=== PATIENT | female | born 1955 | race Caucasian/White ===

== ENCOUNTER → 2016-12-05 | Outpatient (CLI) | payer OTHER ==
[~2016-12-05] MED LIST: AMIT50TA3 PO; AMT25 PO; ASPCH81 PO; ASPI81TA28 PO; ATOR10TA82 PO; AZITTAB PO; BNC5 PO; CLR/5 PO; CLR10 PO; EMPA1TAB PO; GLC/500 PO; INSU1INJ15; LVMI SQ; METF1000 PO; METO25TA3 PO; ROSU5TAB PO
== END | disposition home or self-care (01) ==
LOC: C.RDSM 12:15
PROVIDERS: ATTEND Physical Medicine & Rehabilitation Sports Medicine
DX: M25.562 Pain in left knee (principal)

== ENCOUNTER 2016-12-23 18:29 | Emergency (ER) | payer OTHER ==
[~2016-12-23] VITALS: Ht 154.9 cm; Wt 69.4 kg
[~2016-12-23 18:29] MED LIST changes: -AMIT50TA3 PO; -ASPI81TA28 PO; -ATOR10TA82 PO; -AZITTAB PO; -CLR10 PO; -EMPA1TAB PO; -GLC/500 PO; -LVMI SQ
[2016-12-23 18:31] VITALS: BP 162/81; PULSE 88; TEMP 37.1; O2SAT 95; Ht 154.9 cm; Wt 69.4 kg
[2016-12-23] MEDS ORDERED: AZITTAB PO (18:47)
--- NOTE | 2016-12-23 18:49 | EMERGENCY ROOM VISIT NOTE ---
ED Visit Note First contact with patient: 18:35 CHIEF COMPLAINT: Right Earache HISTORY OF PRESENT ILLNESS: This 61-year-old female presents to the emergency department and states they have had an earache 1 day. The patient reports 2 day history of chest congestion, coughing up clear phlegm. She states she thought she was getting a sinus infection due to the drainage, however she has not experienced any sinus congestion. The patient states today, she began experiencing right ear pain and pressure. The patient has not had a sore throat or recent URI. There is no hoarseness. They rate the pain as sharp and 10/10. The pain is in the right ear. They have had Tylenol for the pain with only minimal relief. REVIEW OF SYSTEMS: A 6 system review of systems was completed with positives and pertinent negatives listed in the HPI. ALLERGIES: Codeine, penicillin, NSAIDs MEDICATIONS: Levemir, metformin, amitriptyline, metoprolol, Cozaar, aspirin, Lipitor PMH: Diabetes, fibromyalgia, hypertension, hyperlipidemia, heart disease. SH: Patient is a current smoker, and smokes approximately one pack per day. Patient denies alcohol or drug use. She lives locally with her family PHYSICAL EXAM: Vital Signs: Reviewed Nurse's notes, temperature 37.1C orally. GENERAL: 61-year-old female, in no acute distress, well-developed, well- nourished. SKIN: Normal. HEART: Regular rate and rhythm without murmurs gallops or rubs. LUNGS: Clear to auscultation and breath sounds equal, no wheezes, rales, or rhonchi. MOUTH: The pharynx is not inflamed and the tonsils are not enlarged. The airway is patent. EARS: The right tympanic membrane is erythematous, inflamed and bulging. The right external auditory canal is clear with no tragus tenderness. The left tympanic membrane is pearly cervantes without erythema or effusion. The left external auditory canal is clear. LYMPH: There is no lymphadenopathy. ED COURSE: I examined the patient. Discussion with patient regarding proper treatment of otitis media. Pt. became upset at discharge because her pharmacy is currently closed, so reque The patient was discharged home in stable condition. DIAGNOSIS: Acute otitis media of the right ear DIFFERENTIAL DIAGNOSIS: Acute otitis externa, cranial nerve palsy, acute sinusitis, acute bronchitis, pneumonia, and others. DISCHARGE INSTRUCTIONS & TREATMENT: Z-pack as directed, however you received your first dose this evening. Take 1 tablet daily starting tomorrow for 5 days. You may take Tylenol 500-1000mg 3-4 times per day as needed for pain. No swimming until resolved. Follow up with family doctor if not improving in 7 days. Problem List Medical Problems: (1) Bilateral carpal tunnel syndrome Status: Resolved (2) DM (diabetes mellitus) Status: Chronic (3) Heart disease Status: Chronic (4) HTN (hypertension) Status: Chronic (5) PNA (pneumonia) Status: Resolved (6) Trigger thumb of both thumbs Status: Resolved Surgical Problems: (1) Stented coronary artery Status: Resolved Current/Historical Medications Scheduled Amitriptyline Hcl (Elavil *), 50 MG PO HS PRN Aspirin (Aspirin Tab-Chewable *), 81 MG PO DAILY Azithromycin (Zithromax Z-Vijay), 0 PO UD Desloratadine (Clarinex), 5 MG PO DAILY Insulin Detemir (Levemir), 44 BID Metformin Hcl (Glucophage), 1,000 MG PO BID Metoprolol Succ (Toprol Xl) (Toprol-Xl), 25 MG PO BID Olmesartan Medoxomil (Benicar), 5 MG PO QPM Rosuvastatin Calcium (Crestor), 5 MG PO Q2D Allergies Coded Allergies: NSAIDs (Verified Allergy, Intermediate, ., 02/22/16) PERIPHERAL EDEMA OF LEGS Rofecoxib (Verified Allergy, Intermediate, ., 02/22/16) PERIPHERAL EDEMA OF LEGS Codeine (Unverified Allergy, Unknown, COLD SWEAT,ANXIETY, 02/22/16) Penicillins (Unverified Allergy, Unknown, UNKNOWN, 02/22/16) Vital Signs Date Time Temp Pulse Resp B/P (MAP) Pulse Ox O2 Delivery O2 Flow Rate FiO2 12/23/16 18:31 37.1 88 20 162/81 95 Room Air Departure Information Impression Primary Impression: Otitis media of right ear Dispostion Home / Self-Care Condition GOOD Prescriptions Azithromycin (ZITHROMAX Z-VIJAY) 250 Mg Tab 0 PO UD, #1 PKT 2 TABS DAY 1, THEN 1 TAB DAILY FOR 4 DAYS Prov: Tram Leigh PA-C 12/23/16 Referrals Maya Choudhury D.O. (PCP) Patient Instructions ED Otitis Media Acute Adult, [facility] Additional Instructions You have been treated in the Emergency Department for an Inner Ear Infection ( Otitis Media). You were prescribed Zithromax to be taken 2 pills on day 1 (which you received in the ED), one pill on days 2 through 5. This is an antibiotic. All antibiotics have the potential to cause diarrhea. Stop this medication and contact a medical provider if you were to develop any significant adverse side effects including: wheezing, shortness of breath, passing out, vomiting, or a diffuse rash. Always take antibiotics as directed and COMPLETE the ENTIRE course regardless of the improvement of your symptoms. For pain and fever control, you can use the following [id number] medicines (if >12 yo): - Regular strength (325mg/tab) Tylenol (acetaminophen) 2 tabs every 4-6 hours as needed. Do not exceed 12 tablets in a 24 hour period. Avoid taking more than 4 grams (4000 mg) of Tylenol per day. This includes any other sources of acetaminophen you may take on a regular basis. You should follow-up with your Primary Care Provider from today's Emergency Department visit. Return to the emergency department if you develop the following symptoms despite treatment course outlined above: headache, fever, intractable pain, increased redness, swelling, or purulent discharge. Problem Qualifiers Primary Impression: Otitis media of right ear Otitis media type: serous Chronicity: acute Recurrence: not specified as recurrent Qualified Codes: H65.01 - Acute serous otitis media, right ear
[2016-12-23] MEDS ORDERED: AZITHROMYCIN 250 MG TAB PO STA (18:52)
[2016-12-23] MEDS ORDERED: CLR10 PO (19:07)
[2016-12-23] MEDS ORDERED: LVMI SQ (19:07)
[2016-12-23] MEDS ORDERED: GLC/500 PO (19:07)
[2016-12-23] MEDS ORDERED: EMPA1TAB PO (19:07)
[2016-12-23] MEDS ORDERED: ATOR10TA82 PO (19:07)
[2016-12-23] MEDS ORDERED: ASPI81TA28 PO (19:07)
[2016-12-23] MEDS ORDERED: AMIT50TA3 PO (19:07)
== END 2016-12-23 18:59 | disposition home or self-care (01) ==
LOC: C.EDB 18:30 → C.EDD 18:59
DX: H65.01 Acute serous otitis media, right ear (principal); E11.9 Type 2 diabetes mellitus without complications; I10 Essential (primary) hypertension; E78.5 Hyperlipidemia, unspecified; F17.200 Nicotine dependence, unspecified, uncomplicated; Z87.01 Personal history of pneumonia (recurrent); Z98.61 Coronary angioplasty status; Z79.4 Long term (current) use of insulin; Z79.82 Long term (current) use of aspirin; Z79.84 Long term (current) use of oral hypoglycemic drugs; Z79.899 Other long term (current) drug therapy

== ENCOUNTER → 2017-03-20 | Outpatient (CLI) | payer OTHER ==
[~2017-03-20] MED LIST changes: +AMIT50TA3 PO; -AMT25 PO; -ASPCH81 PO; +ASPI81TA28 PO; +ATOR10TA88 PO; -CLR/5 PO; +CLR10 PO; +EMPA1TAB PO; +GLC/500 PO; -INSU1INJ15; +LVMI SQ; -METF1000 PO; -ROSU5TAB PO
== END | disposition home or self-care (01) ==
LOC: C.PAPS 14:49
PROVIDERS: ATTEND Obstetrics & Gynecology
DX: Z12.4 Encounter for screening for malignant neoplasm of cervix (principal)

== ENCOUNTER → 2017-08-03 | Outpatient (CLI) | payer OTHER ==
[~2017-08-03] MED LIST changes: +ATOR10TA82 PO; -ATOR10TA88 PO
--- NOTE | 2017-08-03 08:33 | DIAGNOSTIC IMAGING REPORT ---
ABDOMINAL ULTRASOUND, RIGHT UPPER QUADRANT HISTORY: Acute right upper abdominal pain.. COMPARISON: Abdominal ultrasound 05/01/2012. FINDINGS: Pancreas: The pancreatic duct is at the upper limits of normal measuring 2.6 mm. The visualized pancreas demonstrates a normal echotexture. Liver: Unremarkable. Gallbladder: No gallbladder wall thickening. No gallstones. CBD: 5 mm. Right kidney: No hydronephrosis. IMPRESSION: No significant abnormality identified within the right upper quadrant. Electronically signed by: Donavan Diane M.D. 08/03/2017 8:32 AM Dictated Date/Time: 08/03/2017 8:31 AM
== END | disposition home or self-care (01) ==
LOC: C.ULTR 07:33
PROVIDERS: ATTEND Nurse Practitioner
DX: R10.11 Right upper quadrant pain (principal)

== ENCOUNTER → 2017-08-07 | Outpatient (CLI) | payer OTHER ==
[2017-08-07 13:25] LABS: BASO % 0.2 %; BASO ABS # 0.02 K/uL (0-0.2); EOS % 0.5 %; EOS ABS # 0.04 K/uL (0-0.5); HEMOGLOBIN 15.9 g/dL (12.0-16.0); IG# 0.01 K/uL (0.00-0.02); LYMPH % 38.6 %; LYMPH ABS # 3.36 K/uL (1.2-3.4); MEAN CELL VOLUME 84.5 fL (80-100); MEAN CORPUSCULAR HEMOGLOBIN 28.6 pg (25-34); MEAN CORPUSCULAR HGB CONC 33.8 g/dl (32-36); MEAN PLATELET VOLUME 10.2 fL (7.4-10.4); MONO % 7.6 %; MONO ABS # 0.66 K/uL (0.11-0.59); NEUT ABS # 4.62 K/uL (1.4-6.5); PLATELET COUNT 323 K/uL (130-400); RED CELL DISTRIBUTION WIDTH CV 15.6 % (11.5-14.5); RED CELL DISTRIBUTION WIDTH SD 47.9 fL (36.4-46.3); WHITE BLOOD COUNT 8.71 K/uL (4.8-10.8)
[2017-08-07 13:53] LABS: ALBUMIN 3.6 gm/dl (3.4-5.0); ALT/SGPT 18 U/L (12-78); BLOOD UREA NITROGEN 14 mg/dl (7-18); CALCIUM 9.5 mg/dl (8.5-10.1); CARBON DIOXIDE 26 mmol/L (21-32); CHOLESTEROL 148 mg/dl (0-200); CREATININE 0.72 mg/dl (0.60-1.20); GLUCOSE 135 mg/dl (70-99); POTASSIUM 3.8 mmol/L (3.5-5.1); SODIUM 134 mmol/L (136-145)
[2017-08-07 13:57] LABS: ALKALINE PHOSPHATASE 114 U/L (45-117); AST/SGOT 7 U/L (15-37); LDL CHOLESTEROL CALCULATED 74 mg/dl; TOTAL PROTEIN 7.3 gm/dl (6.4-8.2)
== END | disposition home or self-care (01) ==
LOC: C.LABBFT 07:33
PROVIDERS: ATTEND Nurse Practitioner
DX: R10.11 Right upper quadrant pain (principal)

== ENCOUNTER → 2017-08-14 | Outpatient (CLI) | payer OTHER ==
[~2017-08-14] MED LIST changes: +SINCALIDE INJ 1.4 MCG in SODIUM CHLORIDE 0.9% 100ML 100 ML IV ONE
--- NOTE | 2017-08-14 15:19 | DIAGNOSTIC IMAGING REPORT ---
HEPATOBILIARY EF IMAGING HISTORY: Pain. Nausea. R10.11 Acute abdominal pain in right upper quadrant COMPARISON: None. TECHNIQUE: Immediately following the intravenous administration of 5.64 mCi Tc-99m Choletec, dynamic anterior abdominal imaging pre/post 1.4 mcg of Kinevac was performed. FINDINGS: Uniform hepatic tracer accumulation is shown. Prompt intrahepatic biliary excretion is seen. The gallbladder, common bile duct, and small bowel are all visualized by 35 minutes. This appearance represents the normal sequence of biliary excretion. The gallbladder ejection fraction following administration of Kinevac was 26 % (normal >35%). IMPRESSION: 1. No evidence for cystic duct obstruction. 2. Gallbladder ejection fraction calculated to be 26 %. This is considered abnormally low. The above report was generated using voice recognition software. It may contain grammatical, syntax or spelling errors. Electronically signed by: Garrett Aparicio M.D. 08/14/2017 3:18 PM Dictated Date/Time: 08/14/2017 3:16 PM
== END | disposition home or self-care (01) ==
LOC: C.NUCL 12:27
PROVIDERS: ATTEND Nurse Practitioner
DX: R10.11 Right upper quadrant pain (principal); R93.2 Abnormal findings on diagnostic imaging of liver and biliary tract

== ENCOUNTER 2017-09-13 06:35 | Day surgery (SDC) | payer OTHER ==
[2017-09-03 13:59] VITALS: Ht 156.2 cm; Wt 69.7 kg
--- NOTE | 2017-09-03 14:43 | PAT Medication Instructions ---
Service Date Sep 03, 2017. Current Home Medication List Acetaminophen (Tylenol), 650 MG PO UD PRN for Pain Amitriptyline Hcl (Amitriptyline Hcl), 50 MG PO HS Aspirin (Aspirin Ec), 81 MG PO HS Atorvastatin (Lipitor), 10 MG PO Q2D Empagliflozin (Jardiance), 1 TAB PO QAM Insulin Detemir (Levemir), 42 UNITS SQ BID Loratadine (Claritin), 10 MG PO QAM Metformin Hcl (Glucophage), 1,000 MG PO BID Metoprolol Succ (Toprol Xl) (Toprol-Xl), 25 MG PO BID Multivitamin (Multivitamin), 1 TAB PO HS Ropinirole (Requip), 0.5 MG PO UD PRN for RESTLESS LEG SYNDROME Tramadol (Ultram), 50 MG PO UD PRN for Pain Medication Instructions For Your Scheduled Surgery -Contact your surgeon and j2ee programmer for instructions for: Aspirin (Aspirin Ec), 81 MG PO HS (OK to continue per surgeon) - Hold the following medications 24 hours prior to surgery: Ropinirole (Requip), 0.5 MG PO UD PRN for RESTLESS LEG SYNDROME - Hold the following medications the morning of surgery: Empagliflozin (Jardiance), 1 TAB PO QAM Loratadine (Claritin), 10 MG PO QAM Metformin Hcl (Glucophage), 1,000 MG PO BID - Take the following medications the morning of surgery with a sip of water: Acetaminophen (Tylenol), 650 MG PO UD PRN for Pain (if needed, can be taken up to four hours before surgery) Metoprolol Succ (Toprol Xl) (Toprol-Xl), 25 MG PO BID Tramadol (Ultram), 50 MG PO UD PRN for Pain (if needed, can be taken up to four hours before surgery) - Take the following medications as scheduled the night before surgery: Acetaminophen (Tylenol), 650 MG PO UD PRN for Pain (if needed) Amitriptyline Hcl (Amitriptyline Hcl), 50 MG PO HS Atorvastatin (Lipitor), 10 MG PO Q2D Insulin Detemir (Levemir), 42 UNITS SQ BID Metformin Hcl (Glucophage), 1,000 MG PO BID Metoprolol Succ (Toprol Xl) (Toprol-Xl), 25 MG PO BID Multivitamin (Multivitamin), 1 TAB PO HS Tramadol (Ultram), 50 MG PO UD PRN for Pain (if needed) - For Insulin Dependent Diabetic patients: Test blood sugar A.M. of surgery. - If BLOOD SUGAR IS GREATER THAN 150, take half of your regular dose of: Insulin Detemir (Levemir) -- TAKE 21 UNITS - If BLOOD SUGAR IS LESS THAN 150, do not take any: Insulin Detemir ( Levemir) If you have any questions please call us at [phone] or [phone] or [phone]
--- NOTE | 2017-09-03 15:43 | DIAGNOSTIC IMAGING REPORT ---
TWO VIEW CHEST CLINICAL HISTORY: Preoperative examination. FINDINGS: PA and lateral chest radiographs are compared to study dated 02/05/2012. The cardiomediastinal silhouette is unremarkable. There is atherosclerotic calcification of the thoracic aorta. The lungs and pleural spaces are clear. There is no pneumothorax. The skeletal structures are osteopenic. Degenerative change is noted in the thoracic spine. IMPRESSION: No active disease in the chest. Electronically signed by: Angel Luis Browning M.D. 09/03/2017 3:42 PM Dictated Date/Time: 09/03/2017 3:41 PM
[~2017-09-13] VITALS: Ht 156.2 cm; Wt 69.7 kg
[~2017-09-13 06:35] MED LIST changes: +ACET-1311 PO; -BNC5 PO; -EMPA1TAB PO; +EMPA1TAB3 PO; +LACTATED RINGER'S 1000ML 1,000 ML IV SCH; +MULT-506 PO; +ROPI0.5T15 PO; -SINCALIDE INJ 1.4 MCG in SODIUM CHLORIDE 0.9% 100ML 100 ML IV ONE; +TRAM-10 PO
[2017-09-13] MEDS ORDERED: LOSA50TA6 PO (06:54)
[2017-09-13 06:59] VITALS: BP 132/80; PULSE 79; TEMP 36.7; O2SAT 96
[2017-09-13] MEDS ORDERED: ACETAMINOPHEN 1000 MG/100 ML IV IV ONE (06:59)
[2017-09-13] MEDS ORDERED: LIDOCAINE HCL 2% 2 ML VIAL (20MG/ML) ONE (07:05)
[2017-09-13] MEDS ORDERED: ONDANSETRON INJ 2 MG/ML 2 ML VIAL ONE (07:05)
[2017-09-13] MEDS ORDERED: PROPOFOL IV EMULSION 10 MG/ML 20 ML VIAL IV ONE (07:05)
[2017-09-13] MEDS ORDERED: METOCLOPRAMIDE HCL INJ 5 MG/ML 2 ML VIAL ONE (07:05)
[2017-09-13] MEDS ORDERED: MIDAZOLAM HCL 1 MG/ML 2ML VIAL ONE (07:06)
[2017-09-13] MEDS ORDERED: FENTANYL CITRATE INJ 50 MCG/1 ML 2 ML VIAL ONE ×2 (07:06→08:36)
[2017-09-13] MEDS ORDERED: LARYING-O-JET KIT (LTA) ONE (07:13)
[2017-09-13] MEDS ORDERED: CONRAY 60% 50 ML VIAL ONE (07:26)
[2017-09-13] MEDS ORDERED: LIDOCAINE/EPINEPHRINE 1% 20 ML VIAL ONE (07:26)
--- NOTE | 2017-09-13 07:36 | History & Physical Bridge Note ---
H&P Re-Evaluation Bridge Note: I have examined the patient, reviewed the History & Physical and in the interval since the performance of the History & Physical I have noted the following changes of clinical significance: No changes noted no one bedside all questions answered
[2017-09-13] MEDS ORDERED: ATROPINE SULFATE 0.1 MG/ML 5ML SYR IV PRN (08:00)
[2017-09-13] MEDS ORDERED: ONDANSETRON INJ 2 MG/ML 2 ML VIAL IV PRN ×2 (08:00→09:15)
[2017-09-13] MEDS ORDERED: PHENYLEPHRINE 100MCG/ML 5ML SYR IV PRN (08:00)
[2017-09-13] MEDS ORDERED: EpHEDrine SULFATE INJ 50 MG/ML AMP IV PRN (08:00)
[2017-09-13] MEDS ORDERED: HYDROmorphone INJ 2 MG/ML SYR/VIAL IV PRN (08:00)
[2017-09-13] MEDS ORDERED: EpHEDrine SULFATE 50MG/5ML SYR ONE (08:20)
[2017-09-13] MEDS ORDERED: PHENYLEPHRINE 100MCG/ML 5ML SYR ONE (08:20)
[2017-09-13] MEDS ORDERED: GLYCOPYRROLATE INJ 0.2 MG/ML VIAL ONE (08:36)
[2017-09-13] MEDS ORDERED: NEOSTIGMINE METHYLSULFATE 5 MG/5 ML SYR ONE (08:36)
--- NOTE | 2017-09-13 08:50 | [facility] Post Operative Brief Note ---
Immediate Operative Summary Operative Date Sep 13, 2017. Pre-Operative Diagnosis biliary dyskenesia Post-Operative Diagnosis cc Procedure(s) Performed lap lurdes sher Surgeon Dr Felder Commercial Pest Control Technician Surgeon(s) Bill Sullivan PA-C Estimated Blood Loss 10cc Findings See Below cc Specimens gallbladder
[2017-09-13] MEDS ORDERED: OXYC-57 PO (09:02)
[2017-09-13] MEDS ORDERED: LACTATED RINGER'S 1000ML 1,000 ML IV SCH (09:03)
--- NOTE | 2017-09-13 09:03 | Discharge Instructions ---
Discharge Instructions Date of Service Sep 13, 2017. Visit Reason for Visit: Biliary Dyskinesia, Diabetes Discharge Discharge Diagnosis / Problem: laparoscopic cholecystectomy Discharge Goals Goal(s): Decrease discomfort Activity Recommendations Activity Limitations: as noted below Lifting Limitations: no more than 10 pounds Shower/Bathe: tomorrow Driving or Machine Use: resume 3 days after discharge Anesthesia . Post Anesthesia Instructions: If you have had General Anesthesia or IV Sedation: * Do not drive today. * Resume driving when surgeon permits. * Do not make important decisions or sign legal documents today. * Call surgeon for: 1. Temperature elevations greater than 101 degrees F. 2. Uncontrollable pain. 3. Excessive bleeding. 4. Persistent nausea and vomiting. 5. Medication intolerance (nausea, vomiting or rash). * For nausea and vomiting use only clear liquids such as: tea, soda, bouillon until nausea subsides, then gradually increase diet as tolerated. * If you have any concerns or questions, call your surgeon's office. If physician is unavailable and it is an emergency, call 911 or go to the nearest emergency room. . Instructions / Follow-Up Instructions / Follow-Up Dr. Felder in 1 week, call [phone] for any questions or if you need to schedule an appt Diet Recommendations Recommended Home Diet: no limitations Procedures Procedures Performed: lur[facility] hook Pending Studies Studies pending at discharge: no Medical Emergencies . Who to Call and When: Medical Emergencies: If at any time you feel your situation is an emergency, please call 911 immediately. . Non-Emergent Contact Non-Emergency issues call your: Surgeon Call Non-Emergent contact if: you have a fever, temperature is above 101.5, your pain is not controlled, you have any medication questions . . "Provider Documentation" section prepared by Bill Sullivan. .
--- NOTE | 2017-09-13 09:05 | DIAGNOSTIC IMAGING REPORT ---
CHOLANGIOGRAM O.R. CLINICAL HISTORY: 62 years-old Female presenting with CHOLANGIOGRAM. TECHNIQUE: Fluoroscopy was provided for an intraoperative cholangiogram status post cholecystectomy. Contrast was injected through the cystic duct remnant. COMPARISON: HIDA scan from 08/14/2017. FINDINGS: Cholecystectomy clips noted. The cystic duct and intra and extrahepatic bile ducts opacified with contrast. The common bile duct is normal in course and caliber. There are no filling defects seen within the common bile duct to suggest a retained stone. Contrast extends into the small bowel. There is no intrahepatic bile duct dilatation. Fluoroscopy dosage (mGy): 0.49. Fluoroscopy time: 2.3 seconds. Number of fluoroscopic spot images: 2. IMPRESSION: Fluoroscopy provided for an intraoperative cholangiogram status post cholecystectomy. No filling defects within the common bile duct. Electronically signed by: Jose Carmona M.D. 09/13/2017 9:04 AM Dictated Date/Time: 09/13/2017 9:02 AM
[2017-09-13] MEDS ORDERED: OXYCODONE/ACETAMINOPHEN 5-325 TAB PO PRN (09:15)
[2017-09-13] MEDS ORDERED: MoRPHine SULFATE 4 MG/ML 1 ML CARP\\VIAL IV PRN (09:15)
--- NOTE | 2017-09-13 09:25 | Anesthesiology Progress Note ---
Anesthesia Post Op Note Date & Time Sep 13, 2017 at 09:25 Vital Signs Pain Intensity: 0 Vital Signs Past 12 Hours Date Time Temp Pulse Resp B/P (MAP) Pulse Ox O2 Delivery O2 Flow Rate FiO2 09/13/17 09:16 113/59 09/13/17 09:13 69 13 98 09/13/17 09:13 69 13 09/13/17 09:12 107/57 09/13/17 09:10 118/58 09/13/17 09:03 36.3 56 10 110/62 94 Oxymask 10 09/13/17 06:59 36.7 79 20 132/80 (97) 96 Room Air Notes Mental Status: alert / awake / arousable, participated in evaluation Pt Amnestic to Procedure: Yes Nausea / Vomiting: adequately controlled Pain: adequately controlled Airway Patency, RR, SpO2: stable & adequate BP & HR: stable & adequate Hydration State: stable & adequate Anesthetic Complications: no major complications apparent
[2017-09-13 09:55] VITALS: BP 89/49; PULSE 73; TEMP 36.6; O2SAT 94
[2017-09-13 10:25] VITALS: BP 105/60; PULSE 73; TEMP 36.5; O2SAT 96
--- NOTE | 2017-09-13 10:34 | OPERATIVE REPORT ---
DATE OF OPERATION: 09/13/2017 SURGEON: Jc Felder MD. HOME PLANNING CONSULTANT SALESPERSON: Bill Sullivan PA-C. PREOPERATIVE DIAGNOSES: Biliary dyskinesia, chronic cholecystitis. POSTOPERATIVE DIAGNOSIS: Same. PROCEDURE: Laparoscopic cholecystectomy, intraoperative cholangiogram. SUMMARY: The patient was brought into the operating room theater. The abdomen was prepped with Betadine solution and properly draped. In the lower abdomen, there was a little mild irritation when I had seen her in the preop area and it was outlined almost as a belt line. It extended about 3-4 inches almost symmetrical around the umbilicus and below it. Therefore, I gave a systemic antibiotics of Mefoxin. Therefore, a small incision was made supraumbilically sufficient enough to place a Veress needle followed by CO2 followed by 3 mm port. Point of entry inspected and no injury identified. Under direct visualization, we placed a 5 mm epigastric, two 3 mm port. The gallbladder was identified. Thick walled adhesions to the gallbladder which were significant were taken down by blunt and sharp dissection. We went down to the triangle of Calot, identified the cystic duct, actually artery was in the more anteriorly and superiorly. We dissected out the right angle clamp, doubly clipped proximally and once distally. We then identified the cystic duct around it at the takeoff of the gallbladder, placed a clip proximally. A small opening in the cystic duct was made. A #4 urethral catheter transversing the abdominal wall and a 14 Angiocath was positioned in the cystic duct. Two x-rays were taken and showed free flow into the duodenum, no obstruction. Distally the cystic duct was a little bit coursed through along, therefore once we took the catheter out, we choked on the cystic duct and clamped it distally twice and divided it. Once we divided the cystic artery, took out the gallbladder in antegrade fashion using electrocautery trying to leave as much posterior peritoneum as possible. The patient had a very easily oozing from the liver bed in different areas and we were able to manage it completely. The fundus of the gallbladder as we took it out there was a small bleeder at the edge of the liver that we cauterized and got that under control. At this point, we then placed the gallbladder in an Endopouch, took it out intact through the epigastric port site. The subhepatic and suprahepatic area was then checked for hemostasis and appeared quite satisfactory. Then placed a camera through the subcostal port to the right upper quadrant to visualize the umbilical opening. There were no adhesions to the anterior abdominal wall in that area. No bleeding from 3 mm trocar. Individual trocars removed under direct visualization and last the umbilical trocar. A 4-0 Monocryl and Steri-Strips applied. The procedure was tolerated well by the patient. Estimated blood loss approximately 10 mL. The patient was taken to recovery room in good condition. I attest to the content of the Intraoperative Record and any orders documented therein. Any exception s are noted below.
[2017-09-13 10:50] VITALS: BP 115/65; PULSE 70; TEMP 36.5; O2SAT 95
[2017-09-13] MEDS ORDERED: ROCURONIUM BROMIDE 10 MG/ML 5 ML VIAL IV ONE (17:19)
== END 2017-09-13 10:55 | disposition home or self-care (01) ==
LOC: C.ACU 06:35
PROVIDERS: ATTEND Surgery
DX: K81.1 Chronic cholecystitis (principal); K82.8 Other specified diseases of gallbladder; R10.11 Right upper quadrant pain; I21.9 Acute myocardial infarction, unspecified; M19.90 Unspecified osteoarthritis, unspecified site; M17.12 Unilateral primary osteoarthritis, left knee; I25.10 Atherosclerotic heart disease of native coronary artery without angina pectoris; F32.9 Major depressive disorder, single episode, unspecified; F41.9 Anxiety disorder, unspecified; K21.9 Gastro-esophageal reflux disease without esophagitis; F17.200 Nicotine dependence, unspecified, uncomplicated; E78.00 Pure hypercholesterolemia, unspecified; I10 Essential (primary) hypertension; E11.9 Type 2 diabetes mellitus without complications; Z83.3 Family history of diabetes mellitus; Z83.42 Family history of familial hypercholesterolemia; Z84.1 Family history of disorders of kidney and ureter; Z82.3 Family history of stroke; Z95.5 Presence of coronary angioplasty implant and graft; Z79.82 Long term (current) use of aspirin; Z79.84 Long term (current) use of oral hypoglycemic drugs; Z88.0 Allergy status to penicillin; Z88.8 Allergy status to other drugs, medicaments and biological substances; Z79.4 Long term (current) use of insulin; Z87.442 Personal history of urinary calculi

== ENCOUNTER → 2017-10-10 | Outpatient (CLI) | payer OTHER ==
[~2017-10-10] MED LIST changes: -ACET-1311 PO; -LACTATED RINGER'S 1000ML 1,000 ML IV SCH; +LOSA50TA6 PO; +OXYC-57 PO
[2017-10-10 13:01] LABS: HEMOGLOBIN A1C 9.7 % (4.5-5.6)
== END | disposition home or self-care (01) ==
LOC: C.LABBFT 11:06
PROVIDERS: ATTEND Nurse Practitioner
DX: E11.9 Type 2 diabetes mellitus without complications (principal)

== ENCOUNTER → 2017-10-22 | Outpatient (CLI) | payer OTHER ==
--- NOTE | 2017-10-22 14:41 | DIAGNOSTIC IMAGING REPORT ---
RIGHT HEEL 2 VIEWS CLINICAL HISTORY: Chronic right heel pain. FINDINGS: AP and lateral views of the right heel are obtained. Correlation is made with radiographs of the right foot dated 10/14/2013. The skeletal structures are osteopenic. No calcaneal fracture is identified. There are large dorsal and plantar calcaneal enthesophytes. The overlying soft tissues are within normal limits. IMPRESSION: 1. No acute osseous abnormality is seen. 2. Dorsal and plantar heel spurs. Electronically signed by: Angel Luis Browning M.D. 10/22/2017 2:40 PM Dictated Date/Time: 10/22/2017 2:39 PM
== END ==
LOC: C.RAD1850 14:24
PROVIDERS: ATTEND Internal Medicine
DX: M79.671 Pain in right foot (principal)